=== PATIENT | male | born 1980 | race Caucasian/White ===

== ENCOUNTER 2017-10-29 07:54 | Emergency (ER) | payer OTHER ==
[~2017-10-29] VITALS: Ht 193 cm; Wt 81.1 kg
[2017-10-29 08:41] LABS: BASOPHIL (%) 0.2 % (0-1); EOSINOPHIL (%) 0.4 % (0-5); EOSINOPHIL COUNT 0.1 K/uL (0-0.3); HEMATOCRIT 44.3 % (38.0-50.0); HEMOGLOBIN 14.9 G/DL (12.5-16.6); IMMATURE GRANULOCYTE (%) 0.4 % (0.0-0.7); LYMPHOCYTE (%) 16.9 % (15-42); LYMPHOCYTE COUNT 2.4 K/uL (1.0-2.8); MCH 31.4 PG (29.0-34.0); MCHC 33.6 G/DL (30.0-36.0); MCV 93.5 FL (86-99); MONOCYTE (%) 4.5 % (3-12); MONOCYTE COUNT 0.6 K/uL (0-0.8); NEUTROPHIL (%) 77.6 % (45-76); NEUTROPHIL COUNT 10.8 K/uL (1.8-6.4); PLATELET COUNT 178 K/uL (156-360); RBC DIS.WIDTH-SD 41.8 % (39-53); RED BLOOD COUNT 4.74 M/uL (4.00-5.50); WHITE BLOOD COUNT 13.9 K/uL (4.1-10.2)
[2017-10-29 08:49] LABS: CHLORIDE 100 mEq/L (99-109); POTASSIUM 4.1 mEq/L (3.7-5.4); SODIUM 138 mEq/L (136-147)
[2017-10-29 08:51] LABS: GLUCOSE 122 mg/dL (70-99)
[2017-10-29 08:55] LABS: CREATININE 0.8 mg/dL (0.6-1.3); GFR ESTIMATE (CALCULATED) > 59 mL/min/ (58.99-99999); UREA NITROGEN (BUN) 11 mg/dL (9-23)
[2017-10-29] MEDS ORDERED: BENTYL20 MG PO (11:37)
[2017-10-29 11:52] VITALS: BP 109/62
== END 2017-10-29 11:45 | disposition home or self-care (01) ==
LOC: EME 07:54
PROVIDERS: Emergency Medicine
DX: K62.5 Hemorrhage of anus and rectum (principal); R19.7 Diarrhea, unspecified; F17.200 Nicotine dependence, unspecified, uncomplicated
CPT/HCPCS: 74176; 80048; 85025; 99281; 99285